=== PATIENT | female | born 1975 | race African-American/Black ===

== ENCOUNTER 2016-07-15 11:00 | Inpatient (IN) | payer OTHER ==
[~2016-07-15] VITALS: Ht 149.9 cm; Wt 63.2 kg
[2016-07-15] MEDS ORDERED: LACTATED RINGER'S 1,000 ML IV PRN (12:20)
[2016-07-15] MEDS ORDERED: MISOPROSTOL 200 MCG TAB PR PRN (12:30)
[2016-07-15] MEDS ORDERED: LIDOCAINE 1% (MPF) 30 ML INJ INJ PRN (12:30)
[2016-07-15] MEDS ORDERED: BUTORPHANOL 2 MG INJ IV PRN (12:30)
[2016-07-15] MEDS ORDERED: OXYTOCIN 30 UNITS/LR 500 ML IV PRN (12:30)
[2016-07-15] MEDS ORDERED: METHYLERGONOVINE 0.2 MG INJ IM PRN (12:30)
[2016-07-15] MEDS ORDERED: IBUPROFEN 600 MG TAB PO PRN (12:30)
[2016-07-15] MEDS ORDERED: OXYTOCIN 30 UNITS/LR 500 ML IV SCH ×2 (12:30)
[2016-07-15] MEDS ORDERED: CARBOPROST 250 MCG INJ IM PRN (12:30)
[2016-07-15 12:47] VITALS: BP 129/75; PULSE 88; RESP 18; Ht 149.9 cm; Wt 63.2 kg
[2016-07-15 13:18] LABS: BASOPHILS % 0.2 % (0.0-2.0); EOSINOPHILS # 0.1 10^3/ul (0.0-0.5); EOSINOPHILS % 0.8 % (0.0-7.0); HEMATOCRIT 39.1 % (37.0-47.0); HEMOGLOBIN 12.7 g/dl (12.0-16.0); LYMPHOCYTES # 1.7 10^3/ul (0.8-2.9); LYMPHOCYTES % 21.4 % (15.0-51.0); MEAN CORPUSCULAR HEMOGLOBIN 25.8 pg (29.0-33.0); MEAN CORPUSCULAR HGB CONC 32.4 g/dl (32.0-37.0); MEAN CORPUSCULAR VOLUME 79.7 fl (82.0-101.0); MEAN PLATELET VOLUME 8.2 fl (7.4-10.4); MONOCYTE # 0.6 10^3/ul (0.3-0.9); MONOCYTES % 7.1 % (0.0-11.0); NEUTROPHIL # 5.7 10^3/ul (1.6-7.5); NEUTROPHILS % 70.5 % (39.0-77.0); PLATELET COUNT 190 10^3/UL (140-440); RED BLOOD COUNT 4.91 10^6/ul (4.20-5.40); RED CELL DISTRIBUTION WIDTH 15.3 % (11.5-14.5); UNCORRECTED WBC 8.1 10^3/ul (4.8-10.8); WHITE BLOOD COUNT 8.1 10^3/ul (4.8-10.8)
[2016-07-15 13:19] LABS: CONDITION 1; LH ANALYZER COMMENTS 1
[2016-07-15 13:32] LABS: INR 1.01; PROTIME 13.3 Sec (12.2-14.2)
[2016-07-15 13:33] LABS: PARTIAL THROMBOPLASTIN TIME 30.3 Sec (25.0-35.0)
[2016-07-15] MEDS: LACTATED RINGER'S 1,000 ML IV SCH ×2 (14:17→19:50)
[2016-07-15] MEDS ORDERED: DINOPROSTONE 10 MG VAG SUPP VAG ONE (15:00)
--- NOTE | 2016-07-15 16:30 | HP ---
Date/Time of Note Date/Time of Note DATE: 07/15/16 TIME: 16:10 OB - History Hx of Present Free Text/Dictation admitted for elective induction of the labor at term Last Menstrual Period: Nov 08, 2015 Estimated Due Date: Jul 19, 2016 : 4 Para: 3 Care: Good Care Ultrasounds: Normal mid trimester US Obstetrical Complications: Other Medical Complications: None Past Family/Social History * Past Medical, Surgical, Family and Obstetric Histories reviewed from chart. Blood Type: O+ Rubella: immune RPR/VDRL: Negative GBS Status: Negative HBsAG: Negative OB Admission Exam Vital Signs Vital Signs Vital Signs Date Time Temp Pulse Resp B/P Pulse Ox O2 Delivery O2 Flow Rate FiO2 07/15/16 12:47 98.0 88 18 129/75 Room Air Physical Exam HEENT: WNL Heart: Rhythm Normal Lungs: Clear, Equal Abdomen: WNL Extremities: Normal Reflexes: Normal Cervical Dilatation: 1cm Effacement: 0% Station: -3 Membranes: Intact Heart Rate: 130's Accelerations: Accelerations Present Decelerations: No Decelerations Varibility: Marked Contractions on Admission: 6-10 Minutes Apart Date/Time Contractions Began: ? Frequency of Contractions: ? Duration: ? Last 72 hours Lab Results CBC & BMP 07/15/16 13:00 OB Assessment/Plan Reason for admission: induction of labor Other Assessment: term gestation Induction Method: per Misoprostol Protocol ENRIQUE VEGA MD Jul 15, 2016 16:27
[2016-07-16] MEDS: LACTATED RINGER'S 1,000 ML IV SCH ×4 (01:35→23:03)
[2016-07-16] MEDS ORDERED: TERBUTALINE 1 ML ONE (05:19)
[2016-07-16] MEDS ORDERED: TERBUTALINE 1 MG/ML INJ SC ONE (05:30)
--- NOTE | 2016-07-16 05:58 | RADRPT ---
PROCEDURE: Limited OB ultrasound CLINICAL INDICATION: presentation TECHNIQUE: Sonographic evaluation to assess the presentation was performed. Transabdominal imaging of the gravid uterus was performed. COMPARISON: OB ultrasound dated 07/15/2016 FINDINGS: There is a single live intrauterine with a heart rate of 148 bpm. position is cephalic. The placenta is posterior. IMPRESSION: Cephalic presentation. RPTAT: HH .Nancy Sun MD, MD Date Time Electronically viewed and signed by .Nancy Sun MD, on 07/16/2016 05:58 .G/
[2016-07-16] MEDS ORDERED: OXYTOCIN 30 UNITS/LR 500 ML IV SCH (10:30)
[2016-07-16 14:56] LABS: BARBITURATES Negative (NEGATIVE); BENZODIAZEPINES Negative (NEGATIVE)
[2016-07-16 15:02] LABS: CANNABINOIDS Negative (NEGATIVE); COCAINE Negative (NEGATIVE); OPIATES Negative (NEGATIVE)
[2016-07-16] MEDS ORDERED: FENTAnyl 2MCG/ML-ROPIV 0.2% 100 ML BAG EPI SCH (15:30)
[2016-07-16] MEDS ORDERED: ONDANSETRON 4 MG INJ IV PRN ×3 (15:30→20:30)
[2016-07-16] MEDS ORDERED: NALOXONE (0.4 MG/ML) INJ IV PRN ×2 (15:30→20:30)
[2016-07-16] MEDS ORDERED: DIPHENHYDRAMINE 50 MG INJ IV PRN ×3 (15:30→20:30)
[2016-07-16] MEDS ORDERED: AMPICILLIN 2 GM/NS (PMX) 100 ML IVPB ONE (18:00)
[2016-07-16] MEDS ORDERED: CEFAZOLIN 2 GM/50 ML (PMX) 50 ML IVPB ONE (18:13)
[2016-07-16] MEDS ORDERED: LIDOCAINE 2%/EPI 30 ML INJ ONE (18:15)
[2016-07-16] MEDS ORDERED: NA BICARBONATE 8.4% 50 ML SYG ONE (18:15)
[2016-07-16] MEDS ORDERED: LACTATED RINGER'S 1,000 ML IV ONE (18:16)
[2016-07-16] MEDS ORDERED: morphine SULFATE/PF (10 MG/10 ML) INJ ONE (18:24)
[2016-07-16] MEDS ORDERED: FAMOTIDINE 20 MG INJ IV ONE (18:30)
[2016-07-16] MEDS ORDERED: CITRIC ACID/NA CITRATE 30 ML CUP PO ONE (18:30)
[2016-07-16] MEDS ORDERED: METOCLOPRAMIDE 10 MG INJ IV ONE (18:30)
[2016-07-16] MEDS ORDERED: FENTAnyl 50 MCG/ML VIAL ONE (18:33)
[2016-07-16] MEDS ORDERED: PHENYLephrine (100 MCG/ML) 5ML SYG ONE ×3 (18:35→19:14)
[2016-07-16] MEDS ORDERED: FENTAnyl 50 MCG/ML VIAL IV PRN (19:00)
[2016-07-16] MEDS ORDERED: KETOROLAC 30 MG INJ IV PRN ×2 (19:00→20:30)
[2016-07-16] MEDS ORDERED: MEPERIDINE 25 MG INJ IV PRN (19:00)
[2016-07-16] MEDS ORDERED: HYDROmorphONE (0.2 MG/ML) 10ML SYG IV PRN (19:00)
[2016-07-16] MEDS ORDERED: PROCHLORPERAZINE 10 MG INJ IV PRN ×2 (19:00→20:30)
[2016-07-16] MEDS ORDERED: EPHEDrine SULFATE 50 MG/5 ML SYG ONE (19:18)
--- NOTE | 2016-07-16 19:52 | OPR ---
Operative Report Planned Procedure Procedure date Jul 16, 2016 Procedure(s) primary C/S Performed by: ENRIQUE VEGA MD Assisting provider: PREET GIBBONS MD Anesthesiologist: PHOEBE FLAHERTY MD Pre-procedure diagnosis face presentation arrest of dilatation and decent Anesthesia Type: epidural Procedure Description Under satisfactory anaesthesia a Pfannenstiel incision was made two fingerbreadth above and parallel to the symphysis of pubis. Incision was extended laterally to the border of the Recti muscles on either sides. Incision was carried down with sharp and blunt dissection until fascia was reached. Anterior Recti muscle fascia was incised in mid portion and incision extended laterally to the border of skin incision. Fascia was mobilized from muscle superiorly and Recti muscles were from midline using sharp and blunt dissection. Peritoneum was visualized; Avoiding bowel and bladder it was incised . Incision was extended superiorly and inferiorly. Bladder blade was placed. Posterior peritoneum covering the lower segment of the uterus and lower segment of the uterus were incised. Incision was extended laterally to the border of Round Lig. on either sides and baby was delivered from OP. position . Amniotic fluid appeared clear. Cord blood was obtained and cord had 3 vessels . Placenta was delivered spontaneously and appeared intact and complete. Intrauterine cavity was rubbed with a laparotomy sponge. Uterine incision was closed in 2 layers using running stitches of No1 Monocryl. Hemostasis appeared secure. Ovaries and Fallopian tubes were within normal limits. Announcing needle, lap sponge and instrument count to be correct abdomen was closed in layers as follows: Peritoneum and Recti muscles with running stitches of 20 Vicryl. Fascia with running stitch of No 1 PDS. Subcutaneous tissue with running stitches of 20 Chromic and skin was closed using arlene. Patient tolerated the procedure well and was transferred to [facility] in good condition. Post-Procedure Post-procedure diagnosis S/P C/S Findings: Live Baby Specimen removed: No Complications: None Pt Condition post procedure: stable Disposition: PACU Physician Certification I, the undersigned physician, hereby certify that I have discussed the procedure described in this consent form with this patient (or the patient's legal sales representative business courses), including: * The risk and benefits of the procedure; * Any adverse reactions that may reasonably be expected to occur; * Any alternative efficacious methods of treatment which may be medically viable ; * The potential problems that may occur during recuperation; * Potential for blood transfusion and associated risks/benefits; and * Any research or economic interest I may have regarding this treatment. I further certify that the patient/legally responsible person was encouraged to ask question and that all questions were answered. ENRIQUE VEGA MD Jul 16, 2016 19:52
--- NOTE | 2016-07-16 20:09 | DELSUM ---
Delivery Summary A-C Datetime Report Generated by CPN: 07/16/2016 20:09 DELIVERY PERSONNEL Special Inspector: Jenna Mak MATERNAL INFORMATION Delivery Anesthesia: Epidural Medications in Delivery: SEE ANESTHESIA RECORD Estimated Blood Loss (ml): 600 Placenta Cultured: No Maternal Complications: None LABOR SUMMARY EDC: 07/19/2016 00:00 No. Babies in Womb: 1 Attempted: No Labor Anesthesia: Epidural LABOR INFORMATION Reason for Induction: Not Applicable Reason for Induction- Other: ELECTIVE Onset of Labor: 07/15/2016 15:06 Cervical Ripening Agents: Cervidil Other Ripening Agents: CERVIDIL Oxytocin: Augmentation Group B Beta Strep: Negative Antibiotics # of Doses: AMPICILLIN 2 GMS IVPB; ANCEF 2 GMS IVPB Antibiotics Time of Last Dose: 07/16/2016 18:38 Steroids Given: None Reason Steroids Not Administered: Not Applicable MEMBRANES Membranes Rupture Method: Spontaneous Rupture of Membranes: 07/16/2016 03:23 Length of Rupture (hr): 15.40 Amniotic Fluid Color: Clear Amniotic Fluid Amount: Moderate Amniotic Fluid Odor: None STAGES OF LABOR Stage 3 hr: 0 Stage 3 min: 1 Total Time in Labor hr: 27 Total Time in Labor min: 42 CSECTION DELIVERY Primary Indication: Other Other Primary Indication: CATEGORY III TRACING; ABNORMAL PRESENTATION CSection Urgency: Emergency CSection Incidence: Primary Labor: Labor Elective: Nonelective CSection Incision: Lower Uterine Transverse BABY A INFORMATION Infant Delivery Date/Time: 07/16/2016 18:47 Method of Delivery: Vaginal Born in Route : No : N/A Forceps: N/A Vacuum Extraction: N/A Shoulder Dystocia : N/A SHOULDER DYSTOCIA BABY A Infant Delivery Date/Time: 07/16/2016 18:47 PRESENTATION/POSITION BABY A Presentation: Cephalic Presentation: Cephalic Presentation: Unable to Assess Cephalic Presentation: Face Breech Presentation: N/A PLACENTA INFORMATION BABY A Placenta Delivery Time : 07/16/2016 18:48 Placenta Method of Delivery: Manual Removal Placenta Status: Delivered SCORES BABY A Heart Rate 1 min: >100 bpm Resp Effort 1 min: Good Cry Reflex Irritability 1 min: Cough/Sneeze/Pulls Away Muscle Tone 1 min: Active Motion Color 1 min: Body Acorn, Extremit Blue Resuscitation Effort 1 min: Tactile Stimulation SCORE 1 MIN: 9 Heart Rate 5 min: >100 bpm Resp Effort 5 min: Good Cry Reflex Irritability 5 min: Cough/Sneeze/Pulls Away Muscle Tone 5 min: Active Motion Color 5 min: Body Acorn, Extremit Blue Resuscitation Effort 5 min: N/A SCORE 5 MIN: 9 INFANT INFORMATION BABY A Gestational Age at Delivery: 39.4 Gestational Status: Full Term- 39- 40.6 Weeks Outcome : Liveborn Infant Condition : Stable Infant Sex: Female IDENTIFICATION/MEDS BABY A ID Band Number: [id number] ID Band Location: Right Leg; Left Arm Sensor Applied: Yes Sensor Number: [id number] Sensor Location : Cord Clamp Vitamin K Given : Not Given Erythromycin Given: Not Given WEIGHT/LENGTH BABY A Birthweight (gm): 2820 Infant Weight (lb): 6 Weight (oz): 3 Length (in): 19.00 Infant Length (cm): 48.26 CORD INFORMATION BABY A No. Cord Vessels: 3 Nuchal Cord : N/A Cord Blood Taken: Yes Suction: Mouth; Nose ASSESSMENT BABY A Infant Complications: Decreased Variability; Multiple Variable Decels Physical Findings at Delivery: Other Physical Findings- Other: SWELLING OF THE FACE Infant Respirations: Appears Normal Juvenile Counselor/ALS Called : No Infant Care By: WILL NELSON RN ;FANNIE GUTIERRES RT Transferred To: Remains with Mother
[2016-07-16] MEDS ORDERED: ZOLPIDEM 5 MG TAB PO PRN (20:30)
[2016-07-16] MEDS ORDERED: HYDROmorphONE 1 MG/ML SYG IV PRN ×2 (20:30)
[2016-07-16] MEDS ORDERED: AMPICILLIN 1 GM/NS (PMX) 50 ML IVPB SCH (22:00)
[2016-07-16 22:30] VITALS: BP 112/67; PULSE 90; RESP 18
[2016-07-16] MEDS ORDERED: MISOPROSTOL 200 MCG TAB PR PRN (22:30)
[2016-07-16] MEDS ORDERED: METHYLERGONOVINE 0.2 MG INJ IM PRN (22:30)
[2016-07-16] MEDS ORDERED: NA PHOSPHATE/BIPHOS 133 ML ENEMA PR PRN (22:30)
[2016-07-16] MEDS ORDERED: OXYCODONE/ACETAMINOPHEN (5/325) TAB PO PRN (22:30)
[2016-07-16] MEDS ORDERED: OXYTOCIN 30 UNITS/LR 500 ML IV PRN (22:30)
[2016-07-16] MEDS ORDERED: CARBOPROST 250 MCG INJ IM PRN (22:30)
[2016-07-16] MEDS ORDERED: LANOLIN 7 GM TUBE TOP PRN (22:30)
[2016-07-16] MEDS ORDERED: ACETAMINOPHEN/CODEINE #3 TAB PO PRN (22:30)
[2016-07-16 23:00] VITALS: BP 111/59; PULSE 94; RESP 18
[2016-07-17 00:06] VITALS: BP 110/62; PULSE 95; RESP 18
[2016-07-17] MEDS: CEFAZOLIN 2 GM/50 ML (PMX) 50 ML IV SCH ×3 (02:22→17:34)
[2016-07-17 04:18] VITALS: BP 96/50; PULSE 97; RESP 18
[2016-07-17] MEDS: LACTATED RINGER'S 1,000 ML IV SCH ×2 (06:26→19:15)
[2016-07-17] MEDS: CLINDAMYCIN 300 MG CAP PO SCH ×3 (06:26→17:39)
[2016-07-17 08:10] VITALS: BP 85/49; PULSE 94; RESP 18
[2016-07-17 08:17] LABS: BASOPHILS % 0.1 % (0.0-2.0); EOSINOPHILS % 0.1 % (0.0-7.0); HEMATOCRIT 26.8 % (37.0-47.0); HEMOGLOBIN 8.9 g/dl (12.0-16.0); LYMPHOCYTES # 1.7 10^3/ul (0.8-2.9); LYMPHOCYTES % 13.5 % (15.0-51.0); MEAN CORPUSCULAR HEMOGLOBIN 25.8 pg (29.0-33.0); MEAN CORPUSCULAR HGB CONC 33.2 g/dl (32.0-37.0); MEAN CORPUSCULAR VOLUME 77.7 fl (82.0-101.0); MEAN PLATELET VOLUME 10.6 fl (7.4-10.4); MONOCYTE # 0.9 10^3/ul (0.3-0.9); MONOCYTES % 6.9 % (0.0-11.0); NEUTROPHIL # 9.8 10^3/ul (1.6-7.5); NEUTROPHILS % 78.8 % (39.0-77.0); PLATELET COUNT 141 10^3/UL (140-415); RED BLOOD COUNT 3.45 10^6/ul (4.20-5.40); RED CELL DISTRIBUTION WIDTH 14.6 % (11.5-14.5); WHITE BLOOD COUNT 12.4 10^3/ul (4.8-10.8)
[2016-07-17] MEDS: SENNA/DOCUSATE NA (8.6MG/50MG) TAB PO SCH ×2 (09:00→21:18)
[2016-07-17] MEDS ORDERED: BISACODYL 10 MG SUPP PR ONE (11:00)
[2016-07-17 12:00] VITALS: BP 98/57; PULSE 92; RESP 18
--- NOTE | 2016-07-17 14:37 | PN ---
Date/Time of Note Date/Time of Note DATE: 07/17/16 TIME: 14:35 Assessment/Plan VTE Prophylaxis VTE Prophylaxis Intervention: ambulation Lines/Catheters IV Catheter Type (from Nrsg): Peripheral IV Assessment/Plan Assessment/Plan S/P C/S POD # 1 will advance diet and ambulate Subjective 24 Hr Interval Summary No BM passing flatus Constitutional: BM, ambulates, flatus, improved, no complaints, urine output Pain Control: well controlled Exam/Review of Systems Vital Signs Vitals Vital Signs Date Time Temp Pulse Resp B/P Pulse Ox O2 Delivery O2 Flow Rate FiO2 07/17/16 09:43 96 21 07/17/16 04:18 98.0 97 18 96/50 Room Air Intake and Output 07/16/16 07/16/16 07/17/16 15:00 23:00 07:00 Intake Total 637 ml 681 ml 1425 ml Output Total 600 ml 250 ml 900 ml Balance 37 ml 431 ml 525 ml Exam Free Text/Dictation abdomen: soft BS + incision: covered Constitutional: alert, oriented, well developed Psych: nl mood/affect, no complaints Head: atraumatic, normocephalic Eyes: EOMI, nl conjunctiva, nl lids, nl sclera ENMT: mucosa pink and moist, nl external ears & nose, nl lips & teeth, nl nasal mucosa & septum Neck: non-tender, supple Respiratory: clear to auscultation, normal air movement Cardiovascular: nl pulses, regular rate and rhythm Gastrointestinal: nl liver, spleen, non-tender, soft Musculoskeletal: nl extremities to inspection, nl gait and stance Extremities: normal pulses Neurological: GEOLOGICAL SURVEY FIELD ASSISTANT II-XII intact, nl mental status, nl speech, nl strength Skin: nl turgor, rash or lesions Lymph: nl lymph nodes Results Result Diagram: 07/17/16 0726 ENRIQUE VEGA MD Jul 17, 2016 14:37
[2016-07-17 16:00] VITALS: BP 97/65; PULSE 93; RESP 16
[2016-07-17 20:05] VITALS: BP 117/71; PULSE 103; RESP 20
[2016-07-17] MEDS: IBUPROFEN 800 MG TAB PO SCH (21:18)
[2016-07-18] MEDS: CLINDAMYCIN 300 MG CAP PO SCH ×5 (00:53→23:57)
[2016-07-18] MEDS ORDERED: BISACODYL 10 MG SUPP PR ONE (00:56)
[2016-07-18] MEDS: IBUPROFEN 800 MG TAB PO SCH ×3 (05:59→21:43)
[2016-07-18 06:00] VITALS: BP 104/81; PULSE 98; RESP 18
[2016-07-18 09:00] VITALS: BP 107/64; PULSE 96; RESP 16
[2016-07-18] MEDS ORDERED: INFLUENZA VIRUS VACCINE 0.5 ML (DISPENSING) IM* ONE (09:00)
[2016-07-18] MEDS: SENNA/DOCUSATE NA (8.6MG/50MG) TAB PO SCH ×2 (09:36→21:43)
[2016-07-18 16:00] VITALS: BP 108/60; PULSE 100; RESP 16
--- NOTE | 2016-07-18 17:47 | DS ---
Date/Time of Note Date/Time of Note home next day DATE: 07/18/16 TIME: 17:46 Obstetrical Discharge Record Final Diagnosis Final Diagnosis: Term delivered Other Final Diagnosis S/P C/S Section Section: Primary Primary Indication arrest of dilatation face presentation Complications Augmentation: Yes Induction: Yes Condition on Discharge Physical Assessment Last Vitals: see nurses notes Voiding: Yes Bowel Movement: Yes Breast: Soft, non-tender, Filling Fundus: Firm Abdomen and Incision: soft bs + incision: healing well Episiotomy: NA Calf Tenderness: No Patient Condition: Good ENRIQUE VEGA MD Jul 18, 2016 17:47
--- NOTE | 2016-07-18 17:51 | DS ---
Date/Time of Note Date/Time of Note home next day DATE: 07/18/16 TIME: 17:48 Discharge Summary Admission/Discharge Info Admit Date/Time Jul 15, 2016 at 12:09 Discharge Date/Time 07/19/2016 Final Diagnosis S/P C/S Patient Condition: Good Procedures primary C/S Hx of Present Illness 41 y/o female had primary C/S Hospital Course uneventful Follow-up Plan 2-3 days for staple removal ENRIQUE VEGA MD Jul 18, 2016 17:51
--- NOTE | 2016-07-18 17:53 | PD.PPDC ---
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
[2016-07-18] MEDS ORDERED: Oxycodone/Acetamin (5/325) PO (17:57)
[2016-07-18] MEDS ORDERED: IBUP800T25 PO (17:57)
[2016-07-18 20:00] VITALS: BP 101/52; PULSE 87; RESP 18
[2016-07-19 04:20] VITALS: BP 102/56; PULSE 80; RESP 17
[2016-07-19] MEDS: IBUPROFEN 800 MG TAB PO SCH ×2 (05:45→14:14)
[2016-07-19] MEDS: CLINDAMYCIN 300 MG CAP PO SCH ×2 (05:45→12:14)
[2016-07-19 08:15] VITALS: BP 112/69; PULSE 78; RESP 18
[2016-07-19] MEDS ORDERED: MEASLES,MUMPS,RUBELLA VACCINE INJ SC* ONE (09:00)
[2016-07-19] MEDS ORDERED: DIPHTH/TET/ACEL PERTUSS (ADULT) 0.5 ML VIAL IM* ONE (09:00)
[2016-07-19] MEDS: SENNA/DOCUSATE NA (8.6MG/50MG) TAB PO SCH (09:25)
== END 2016-07-19 18:10 | disposition home or self-care (01) | DRG 766 ==
LOC: L-D 12:09 → PP1 07-16 22:28
PROVIDERS: ADMIT Obstetrics & Gynecology; ATTEND Obstetrics & Gynecology
PROC: 10D00Z1 Extraction of Products of Conception, Low, Open Approach (ICD-10-PCS; principal; 2016-07-16 18:30)
PROC: 3E00X4Z Introduction of Serum, Toxoid and Vaccine into Skin and Mucous Membranes, External Approach (ICD-10-PCS; 2016-07-19)
DX: O62.1 Secondary uterine inertia (principal); Z23 Encounter for immunization; Z3A.39 39 weeks gestation of pregnancy; Z37.0 Single live birth
CPT/HCPCS: 62319; 76815; 76816; 80307; 85025; 85610; 85730; 86592; 86900; 86901; 90686; 90715; 94760; J0290; J0690; J2274; J2370; J2590; J3010; J3105; J7120